=== PATIENT | female | born 2000 | race Caucasian/White ===

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

== ENCOUNTER 2020-03-31 18:01 | Emergency (ER) | payer SELFPAY ==
[~2020-03-31] VITALS: Ht 157.5 cm; Wt 57.5 kg
[2020-03-31 20:19] LABS: HCG UR SG 1.025 (1.003-1.030); MICROSCOPIC INDICATED
--- NOTE | 2020-03-31 20:39 | NUR ---
pt to room from lobby
[2020-03-31 21:33] VITALS: BP 115/78
[2020-03-31 22:02] LABS: CLUE CELLS NONE SEEN (NONE SEEN); WET PREP WBCS FEW (FEW)
== END 2020-03-31 22:27 | disposition home or self-care (01) ==
LOC: ED 21:27
DX: N30.01 Acute cystitis with hematuria (principal); R30.0 Dysuria
CPT/HCPCS: 81001; 81025; 87086; 87210; 87491; 87591; 87808; 99284